=== PATIENT | female | born 1995 | race Caucasian/White ===

== ENCOUNTER 2017-02-17 22:46 | Day surgery (SDC) | payer OTHER ==
[~2017-02-17 22:46] MED LIST: NO HOME MEDICATIONS
[2017-02-17] MEDS ORDERED: YAZ 28 3 MG-0.01 TAB PO (23:47)
[2017-02-18] VITALS (12 sets, daily range): BP systolic 75–102; BP diastolic 32–62; PULSE 57–98; TEMP 98.2–98.6
[2017-02-18] MEDS ORDERED: NORCO 325 MG-51 TAB PO (14:47)
== END 2017-02-18 16:14 | disposition home or self-care (01) ==
LOC: SURG 22:46 → SDCO 22:46 → SURG 22:47 → SDCO 02-18 16:14
DX: K35.3 Acute appendicitis with localized peritonitis (principal)
CPT/HCPCS: OP; J1100; J1885; J2405; J2704; J3010; J7120

== ENCOUNTER 2020-05-09 22:30 | Emergency (ER) | payer OTHER ==
[~2020-05-09] VITALS: Ht 177.8 cm; Wt 61.4 kg
[~2020-05-09 22:30] MED LIST changes: +BENADRYL25 M2 PO; +DESYREL 50MG50 MG; +LEXAPRO 10MG10 MG PO; +MEDROL 4MG DOSPA4 MG PO; +NORCO 325 MG-51 TAB PO; +PEPCID 20MG TAB20 MG PO; +PREDNISONE20 MG PO; +YAZ 28 3 MG-0.01 TAB PO
[2020-05-09 22:42] VITALS: TEMP 98.7
[2020-05-09 23:16] LABS: COLLECTION METHOD CLEAN CATCH
[2020-05-09 23:18] LABS: BASO % 0.4 % (0.0-2.0); EOS # 0.1 (0.0-0.7); EOS % 1.5 % (0-4.0); GRAN # 4.8 (1.4-6.5); GRAN % 53.6 % (42.2-75.2); HEMATOCRIT 37.4 % (37.0-47.0); LYMPH % 33.9 % (20.0-51.0); MEAN CELL VOLUME 87 fl (80.0-100.0); MEAN CORPUSCULAR HEMOGLOBIN 30 pg (27.0-31.0); MEAN CORPUSCULAR HGB CONC 35 g/dl (33.0-37.0); MEAN PLATELET VOLUME 9.9 fl (7.4-10.4); MONO # 0.9 (0.1-0.6); MONO % 10.4 % (1.7-9.3); PLATELET COUNT 305 K/mm3 (130-400); RED BLOOD COUNT 4.29 M/mm3 (4.10-5.30); REDCELL DISTRIBUTION WIDTH-CV 11.7 % (11.5-14.5)
[2020-05-09 23:31] LABS: ALBUMIN 4.3 gm/dL (3.5-5.0); BILIRUBIN,TOTAL 0.4 mg/dL (0.0-1.0); C-REACTIVE PROTEIN 1.2 mg/dL (0.0-0.9); CALCIUM 9.3 mg/dL (8.4-10.2); CREATININE, serum 0.85 (0.52-1.25); POTASSIUM 3.6 mmol/L (3.4-5.0); TOTAL PROTEIN 7.4 gm/dL (6.4-8.2)
[2020-05-09 23:43] LABS: MUCOUS Present /lpf; PH 7 (5-8); SQUAMOUS EPITHELIAL 0-2 /hpf; URINE APPEARANCE Hazy; URINE BACTERIA None Seen /hpf; URINE BILIRUBIN Negative (NEGATIVE); URINE BLOOD 2+ (NEGATIVE); URINE COLOR Yellow; URINE GLUCOSE Negative (NEGATIVE); URINE KETONE Negative (NEGATIVE); URINE LEUKOCYTE ESTERASE 2+ (NEGATIVE); URINE NITRATE Negative (NEGATIVE); URINE PROTEIN(semi-quant) 2+ (NEGATIVE); URINE RBC >50 /hpf; URINE UROBILINOGEN Negative (NEGATIVE)
[2020-05-10] MEDS ORDERED: CEFTIN 250250 MG/TAB PO (00:32)
[2020-05-10 01:23] VITALS: BP 118/77; PULSE 79
== END 2020-05-10 01:23 | disposition home or self-care (01) ==
LOC: COL.ER 22:30
PROVIDERS: Physician Assistant
DX: N39.0 Urinary tract infection, site not specified (principal); N83.201 Unspecified ovarian cyst, right side; Z32.02 Encounter for pregnancy test, result negative; Z79.52 Long term (current) use of systemic steroids; Z90.49 Acquired absence of other specified parts of digestive tract; Z88.2 Allergy status to sulfonamides
CPT/HCPCS: J0696; J1885; J7030; Q9967

== ENCOUNTER 2023-10-27 20:12 | Emergency (ER) | payer OTHER ==
[~2023-10-27] VITALS: Ht 177.8 cm; Wt 61.4 kg
[~2023-10-27 20:12] MED LIST changes: +CEFTIN 250250 MG/TAB PO
[2023-10-27 20:23] VITALS: TEMP 97.8
[2023-10-27] MEDS ORDERED: oxyCODONE 5 MG TAB PO ONE (20:45)
[2023-10-27] MEDS ORDERED: NAPROSYN500 MG PO (22:35)
[2023-10-27] MEDS ORDERED: ZOFRAN ODT4 MG PO (22:35)
[2023-10-27] MEDS ORDERED: Home oxyCODONE/Acetaminophen 5/325 MG #4 TAB/PACK PO ONE (22:45)
[2023-10-27 23:00] VITALS: BP 115/80; PULSE 88
== END 2023-10-27 22:58 | disposition home or self-care (01) ==
LOC: COL.ER 20:12
DX: S01.01XA Laceration without foreign body of scalp, initial encounter (principal); S10.93XA Contusion of unspecified part of neck, initial encounter; S80.212A Abrasion, left knee, initial encounter; S80.211A Abrasion, right knee, initial encounter; V80.010A Animal-rider injured by fall from or being thrown from horse in noncollision accident, initial encounter; W22.8XXA Striking against or struck by other objects, initial encounter; Y93.52 Activity, horseback riding

== ENCOUNTER 2024-05-08 13:56 | Emergency (ER) | payer BC ==
[~2024-05-08] VITALS: Ht 177.8 cm; Wt 59.1 kg
[~2024-05-08 13:56] MED LIST changes: +NAPROSYN500 MG PO; +ZOFRAN ODT4 MG PO
[2024-05-08 14:18] VITALS: TEMP 97.5
[2024-05-08 14:37] LABS: BASO % 0.5 % (0.0-2.0); EOS # 0.1 K/mm3 (0.0-0.7); GRAN # 5.3 K/mm3 (1.4-6.5); HEMOGLOBIN 16.8 g/dl (12.5-16.0); LYMPH # 1.5 K/mm3 (1.2-3.4); LYMPH % 18.7 % (20.0-51.0); MEAN CELL VOLUME 84 fl (80.0-100.0); MEAN CORPUSCULAR HEMOGLOBIN 30 pg (27-31); MEAN CORPUSCULAR HGB CONC 35 g/dl (33.0-37.0); MEAN PLATELET VOLUME 10.1 fl (7.4-10.4); MONO # 0.8 K/mm3 (0.1-0.6); MONO % 10.5 % (1.7-9.3); PLATELET COUNT 262 K/mm3 (130-400); RED BLOOD COUNT 5.69 M/mm3 (4.10-5.30); REDCELL DISTRIBUTION WIDTH-CV 11.9 % (11.5-14.5)
[2024-05-08] MEDS ORDERED: Ondansetron 4 MG/2 ML VIAL IV ONE (14:45)
[2024-05-08] MEDS ORDERED: NS 1,000 ML IV ONE (14:45)
[2024-05-08 14:58] LABS: ALBUMIN 3.8 g/dL (3.5-5.0); BILIRUBIN,TOTAL 0.8 mg/dL (0.2-1.2); CALCIUM 9.6 mg/dL (8.4-10.2); CREATININE, serum 1.1 mg/dL (0.57-1.11); POTASSIUM 3.4 mEq/L (3.5-4.5); TOTAL PROTEIN 7.3 g/dl (6.2-8.1)
[2024-05-08] MEDS ORDERED: Iohexol 300 - 100 ML VIAL IV ONE (15:35)
[2024-05-08] MEDS ORDERED: NS 100 ML IV SCH (15:36)
[2024-05-08 16:01] LABS: COLLECTION METHOD CLEAN CATCH
[2024-05-08 16:09] LABS: URINE APPEARANCE CLEAR (CLEAR/HAZY); URINE BLOOD NEGATIVE (NEGATIVE); URINE COLOR YELLOW (YELLOW); URINE GLUCOSE NEGATIVE (NEGATIVE); URINE KETONE 3+ (NEGATIVE); URINE NITRATE NEGATIVE (NEGATIVE); URINE PROTEIN(semi-quant) TRACE (NEGATIVE); URINE UROBILINOGEN 0.2 E.U/dL (0.2-1.0)
[2024-05-08] MEDS ORDERED: LR 1,000 ML IV ONE (16:30)
[2024-05-08 17:11] LABS: CLOSTRIDIUM DIFF A/B NEG
[2024-05-08 18:17] VITALS: BP 102/70; PULSE 91
== END 2024-05-08 18:17 | disposition home or self-care (01) ==
LOC: COL.ER 13:56
PROVIDERS: Physician Assistant
DX: A07.2 Cryptosporidiosis (principal)
CPT/HCPCS: J2405; J7030; J7120; Q9967